=== PATIENT | female | born 1950 | race Caucasian/White ===

== ENCOUNTER 2018-03-02 10:36 | Emergency (ER) | END 2018-03-02 13:54 | disposition home or self-care (01) ==

== ENCOUNTER 2019-01-23 18:53 | Emergency (ER) | payer MEDICARE, OTHER ==
[~2019-01-23] VITALS: Ht 152.4 cm; Wt 79.4 kg
[~2019-01-23 18:53] MED LIST: ASPI-817 PO; ATEN-51 PO; FLUO20CA38 PO; GABAPENTIN PO; HYDR25TA6 PO; LOPE2CAP PO; LORA-441 PO; LORA10TA3 PO; METF500T24 PO; OMEP20CA16 PO
[2019-01-23 19:07] VITALS: Ht 152.4 cm; Wt 79.4 kg
[2019-01-23] MEDS ORDERED: PIPER-TAZO 3.375 GM IV (PMX) 100 ML IVPB STA (20:46)
[2019-01-23] MEDS ORDERED: ACETAMINOPHEN 325 MG TAB PO STA (20:46)
[2019-01-23] MEDS ORDERED: SODIUM CHLORIDE 0.9% 1L BAG IV* STA (20:46)
[2019-01-23] MEDS ORDERED: IBUP-1542 PO (21:55)
[2019-01-23] MEDS ORDERED: ACET325T33 PO (21:55)
--- NOTE | 2019-01-23 21:56 | ERD ---
ER Documentation Chief Complaint Chief Complaint ABD PAIN WITH NAUSEA AND URINARY FREQUENCY X2DAYS HPI Patient is a 68-year-old female with hypertension and diabetes who presents with abdominal pain. The patient has had abdominal pain for the past few days which comes and goes. It is worse in the morning. She had fevers as well. She has had no treatment as of yet. She said that she has frequent urination and cough. Upon review of old medical records this is the patient's fifth visit to the ER since 2013. ROS All systems reviewed and are negative except as per history of present illness. Medications Home Meds Active Scripts Ibuprofen* (Motrin*) 600 Mg Tab, 600 MG PO Q8, #30 TAB Prov:NICOLE RODRIGUEZ MD 01/23/19 Acetaminophen* (Tylenol*) 325 Mg Tablet, 2 TAB PO Q8 PRN for PAIN AND OR ELEVATED TEMP, #20 TAB Prov:NICOLE RODRIGUEZ MD 01/23/19 Lorazepam* (Ativan*) 0.5 Mg Tablet, 0.5 MG PO Q8, #10 TAB Prov:NICOLE RODRIGUEZ MD 03/02/18 Loperamide Hcl* (Imodium*) 2 Mg Capsule, 2 MG PO .AFTER EA LOOSE BM PRN for DIARRHEA, #10 TAB Prov:LUIS ANGEL KRAMER 03/02/18 Lorazepam* (Ativan*) 0.5 Mg Tablet, 0.5 MG PO Q8H PRN for ANXIETY, #10 TAB Prov:LUIS ANGEL KRAMER 03/02/18 Reported Medications Aspirin* (Aspirin* EC) 81 Mg Tablet.dr, 81 MG PO DAILY PRN for PAIN, TAB 06/26/16 [Gabapentin] No Conflict Check, PO DAILY 06/26/16 Fluoxetine Hcl* (Prozac*) 20 Mg Capsule, 20 MG PO DAILY, CAP 03/06/14 Atenolol* (Atenolol*) 25 Mg Tablet, 25 MG PO DAILY, TAB 03/06/14 Omeprazole* (Omeprazole*) 20 Mg Capsule.dr, 20 MG PO DAILY 03/06/14 Loratadine* (Loratadine*) 10 Mg Tablet, 10 MG PO DAILY, TAB 03/06/14 Hydrochlorothiazide (Hydrochlorothiazide) 25 Mg Tablet, 25 MG PO DAILY 03/06/14 Metformin Hcl* (Metformin Hcl*) 500 Mg Tablet, 500 MG PO WITH BREAKFAST, TAB 03/06/14 Allergies Allergies: Coded Allergies: No Known Allergy (Unverified , 01/23/19) PMhx/Soc History of Surgery: Yes (R KNEE REPL,COLON,R BREAST LYMPH NODES) Anesthesia Reaction: No Hx Neurological Disorder: No Hx Respiratory Disorders: No Hx Cardiac Disorders: Yes (HTN) Hx Psychiatric Problems: Yes (ANXIETY) Hx Miscellaneous Medical Probl: No Hx Alcohol Use: No Hx Substance Use: No Hx Tobacco Use: No Smoking Status: Never smoker FmHx Family History: No diabetes Physical Exam Vitals Vital Signs Date Temp Pulse Resp B/P (MAP) Pulse Ox O2 O2 Flow FiO2 Time Delivery Rate 01/23/19 101.0 89 19 141/118 96 Room Air 20:48 (126) 01/23/19 101.0 105 19 153/78 96 19:07 (103) Physical Exam Const: Mild distress Head: Atraumatic Eyes: Normal Conjunctiva ENT: Normal External Ears, Nose and Mouth. Neck: Full range of motion. No meningismus. Resp: Clear to auscultation bilaterally Cardio: Regular rate and rhythm, no murmurs Abd: Soft, tenderness to palpation without rebound or guarding Skin: No petechiae or rashes Back: No midline or flank tenderness Ext: No cyanosis, or edema Neur: Awake and alert Psych: Normal Mood and Affect Result Diagram: 01/23/19204401/23/192044 Results 24 hrs Laboratory Tests Test 01/23/19 20:45 01/23/19 21:03 01/23/19 21:30 White Blood Count 9.4 10^3/ul Red Blood Count 5.13 10^6/ul Hemoglobin 14.1 g/dl Hematocrit 42.3 % Mean Corpuscular Volume 82.5 fl Mean Corpuscular Hemoglobin 27.5 pg Mean Corpuscular 33.3 g/dl Hemoglobin Concent Red Cell Distribution Width 14.2 % Platelet Count 236 10^3/UL Mean Platelet Volume 9.9 fl Immature Granulocytes % 1.100 % Neutrophils % 82.6 % Lymphocytes % 8.2 % Monocytes % 6.7 % Eosinophils % 1.1 % Basophils % 0.3 % Nucleated Red Blood Cells % 0.0 /100WBC Immature Granulocytes # 0.100 10^3/ul Neutrophils # 7.8 10^3/ul Lymphocytes # 0.8 10^3/ul Monocytes # 0.6 10^3/ul Eosinophils # 0.1 10^3/ul Basophils # 0.0 10^3/ul Nucleated Red Blood Cells # 0.0 10^3/ul Prothrombin Time 12.7 Sec Prothrombin Time Ratio 1.0 INR International 0.94 Normalized Ratio Activated Partial Thromboplast 24.7 Sec Time Sodium Level 137 mmol/L Potassium Level 4.1 mmol/L Chloride Level 99 mmol/L Carbon Dioxide Level 26 mmol/L Anion Gap 12 Blood Urea Nitrogen 13 mg/dl Creatinine 0.65 mg/dl Est Glomerular Filtrat > 60 mL/min Rate mL/min Glucose Level 149 mg/dl Calcium Level 9.7 mg/dl Total Bilirubin 0.2 mg/dl Direct Bilirubin 0.00 mg/dl Indirect Bilirubin 0.2 mg/dl Aspartate Amino 112 IU/L Transf (AST/SGOT) Alanine 90 IU/L Aminotransferase (ALT/SGPT) Alkaline Phosphatase 146 IU/L Troponin I < 0.012 ng/ml Total Protein 8.4 g/dl Albumin 4.5 g/dl Globulin 3.90 g/dl Albumin/Globulin Ratio 1.15 Lipase 236 U/L POC Venous Lactate 1.3 mmol/L Urine Color YELLOW Urine Clarity CLEAR Urine pH 5.0 Urine Specific Jermyn 1.013 Urine Ketones NEGATIVE mg/dL Urine Nitrite NEGATIVE mg/dL Urine Bilirubin NEGATIVE mg/dL Urine Urobilinogen NEGATIVE mg/dL Urine Leukocyte Esterase NEGATIVE Dina/ul Urine Hemoglobin NEGATIVE mg/dL Urine Glucose NEGATIVE mg/dL Urine Total Protein NEGATIVE mg/dl Current Medications Medications Dose Sig/Manisha Start Time Status Last (Trade) Ordered Route PRN Stop Time Admin Dose Reason Admin Sodium 2,380 ml BOLUS OVER 2 01/23/19 DC 01/23/19 Chloride HOURS STAT 20:46 21:19 (NS) IV* 01/23/19 20:47 650 mg ONCE STAT 01/23/19 DC 01/23/19 Acetaminophen PO 20:46 21:18 (Tylenol 01/23/19 20:47 Tab) Piperacillin 100 ml @ ONCE STAT 01/23/19 DC 01/23/19 Sod/ 200 mls/hr IVPB 20:46 21:18 Tazobactam 01/23/19 21:15 Sod Procedures/MDM EKG read by me: Rate/Rhythm: Regular rate and rhythm at a rate of 84 Intervals: Normal Impression: No evidence of ischemia or arrhythmia Chest x-ray read by radiology. CT abdomen pelvis read by radiology. Patient is a 60-year-old female presents with fever and abdominal pain. Septic work-up was done and is negative. Lactic acid is normal. White blood cell count is normal. LFTs and lipase are basically normal. EKG shows no signs of ischemia. Chest x-ray is negative. Urinalysis shows no sign of infection. CT scan shows no surgical process of the abdomen. I doubt appendicitis, cholecystitis, pancreatitis, or bowel obstruction. The patient will need to follow-up with her primary doctor within 24 to 48 hours for reevaluation. She can return for any worsening symptoms. Departure Diagnosis: Primary Impression: Viral syndrome Additional Impression: Abdominal pain Abdominal location: generalized Qualified Codes: R10.84 - Generalized abdominal pain Condition: NICOLE Fajardo MD Jan 23, 2019 21:56
[2019-01-23 22:53] VITALS: BP 150/72; PULSE 85; RESP 16
== END 2019-01-23 23:21 | disposition home or self-care (01) ==
LOC: E/R 18:53
DX: B34.9 Viral infection, unspecified (principal); I10 Essential (primary) hypertension; E11.9 Type 2 diabetes mellitus without complications; Z79.82 Long term (current) use of aspirin; Z79.84 Long term (current) use of oral hypoglycemic drugs; Z96.651 Presence of right artificial knee joint
CPT/HCPCS: 36415; 71045; 74176; 80053; 81003; 83605; 83690; 84484; 85025; 85610; 85730; 87040; 87086; 93005; 96374; 99285; J2543; J7030